=== PATIENT | male | born 1965 | race Caucasian/White ===

== ENCOUNTER → 2018-06-20 | Outpatient (CLI) | payer OTHER | LOC: M.RAD 12:33 | DX: M47.814 Spondylosis without myelopathy or radiculopathy, thoracic region (principal) ==

== ENCOUNTER 2019-03-10 14:46 | Emergency (ER) | payer OTHER ==
[~2019-03-10] VITALS: Ht 185.4 cm; Wt 124.7 kg
[2019-03-10] MEDS ORDERED: GLUCOTROL5 MG (15:01)
[2019-03-10] MEDS ORDERED: METFORMIN HCL500 MG (15:01)
[2019-03-10] MEDS ORDERED: FLOMAX0.4 MG PO (15:01)
[2019-03-10] MEDS ORDERED: ZANTAC 150MG T150 MG PO (15:01)
[2019-03-10 15:10] LABS: URINE BILIRUBIN NEGATIVE (Negative); URINE BLOOD NEGATIVE (Negative); URINE CLARITY CLEAR; URINE COLOR YELLOW; URINE GLUCOSE-RANDOM 3+ (Negative); URINE KETONES NEGATIVE (Negative); URINE LEUKOCYTES-REFLEX NEGATIVE (Negative); URINE NITRITE-REFLEX NEGATIVE (Negative); URINE PROTEIN NEGATIVE (Negative); URINE SPECIFIC GRAVITY 1.015 (1.005-1.030); URINE UROBILINOGEN 0.2 E.U./dl (0.2-1.0)
[2019-03-10] MEDS ORDERED: HYDROCODON-ACE1 EAC7 PO (16:03)
[2019-03-10 16:19] VITALS: BP 188/94
== END 2019-03-10 16:20 | disposition home or self-care (01) ==
LOC: M.ERS 14:46
PROVIDERS: Nurse Practitioner Psychiatric/Mental Health
DX: M54.41 Lumbago with sciatica, right side (principal); E11.9 Type 2 diabetes mellitus without complications; F17.200 Nicotine dependence, unspecified, uncomplicated